=== PATIENT | male | born 1990 | race Caucasian/White ===

== ENCOUNTER 2016-07-11 09:34 | Emergency (ER) | payer BC | END 2016-07-11 14:00 | disposition home or self-care (01) | LOC: ER1 09:34 | DX: S81.011A Laceration without foreign body, right knee, initial encounter (principal); S00.12XA Contusion of left eyelid and periocular area, initial encounter; S60.211A Contusion of right wrist, initial encounter; S80.212A Abrasion, left knee, initial encounter; V43.52XA Car driver injured in collision with other type car in traffic accident, initial encounter; Y93.89 Activity, other specified; Y92.410 Unspecified street and highway as the place of occurrence of the external cause | CPT/HCPCS: 12001; 71010; 72170; 73110; 73130; 73564; 99284 ==